=== PATIENT | male | born 1950 | race Caucasian/White ===

== ENCOUNTER 2019-09-13 12:42 | Inpatient (IN) ==
[2019-09-07 15:17] LABS: INR 2.3 (0.9-1.1)
[2019-09-07 15:32] LABS: Basophils # (Auto) 0.08 K/mcL (0.00-0.30); Basophils % (Auto) 0.8 % (0.0-2.0); Eosinophils # (Auto) 0.14 K/mcL (0.00-0.70); Eosinophils % (Auto) 1.3 % (0.0-7.0); Granulocytes % (Auto) 73.8 % (38.0-78.0); Hematocrit 49.2 % (40.1-51.0); Hemoglobin 15.9 g/dL (13.7-17.5); Lymphocytes # (Auto) 1.93 K/mcL (1.50-4.80); Lymphocytes % (Auto) 18.4 % (15.5-49.0); Mean Cell Volume 98.4 fL (80.0-100.0); Mean Corpuscular HGB Conc 32.3 g/dL (31.0-36.0); Mean Platelet Volume 11.7 fL (7.4-10.4); Monocytes % (Auto) 5.7 % (1.0-12.0); Platelet Count 314 K/mcL (140-440); Red Cell Distribution Width 12.9 % (11.5-14.5); WBC 10.5 K/mcL (4.50-11.00)
[2019-09-07 15:48] LABS: Estimated Average Glucose(eAG) 171 mg/dL; Hemoglobin A1C 7.6 % HGB (4.0-6.0)
[2019-09-07 16:31] LABS: Blood Urea Nitrogen 12 mg/dl (8-23); Carbon Dioxide 24 mmol/L (22-30); Chloride 101 mmol/L (96-108); Glomerular Filtration Rate 68; Glucose 167 mg/dL (70-105)
[2019-09-07 16:32] LABS: Appearance,Urine CLEAR; Bacteria,Urine 0 /hpf (0); Bilirubin,Urine NEG (NEG); Color,Urine YELLOW; Culture Indicated,Urine NO; Glucose,Urine (UA) NEGATIVE (NEG); Ketones,Urine NEG (NEG); Leukocyte Esterase,Urine NEG /uL (NEG); Mucus,Urine FEW /hpf (0); Nitrate,Urine NEG (NEG); Protein,Urine 30 mg/dL (NEG); Specific Gravity,Urine 1.017 (1.000-1.035); Urine Blood NEG mg/dL (<0.03); Urine RBC 0 /hpf (0-1); Urine Squamous Epithelial Cell 0 /hpf (0-4); Urine WBC 1 /hpf (0-4); Urobilinogen,Urine NEG (NEG)
[~2019-09-13 12:42] MED LIST: CELECOXIB 200 MG CAPSULE PO SCH; IPRATROPIUM/ALBUTEROL 3 ML AMPUL.NEB NEB PRN; PREGABALIN 75 MG CAPSULE PO SCH; SCOPOLAMINE 1 PATCH PATCH TOPICAL PRN; ceFAZolin 2 GM in DEXTROSE 5% IN WATER 50 ML IV SCH; oxyCODONE 10 MG TAB.ER.12H PO SCH
[2019-09-13 13:34] LABS: POC Blood Urea Nitrogen 12 mg/dl (8-23); POC CO2 27 mmol/L (22-30); POC Calcium, Ionized 1.28 mmol/L (1.16-1.32); POC Chloride 101 mmol/L (96-108); POC Creatinine 0.9 mg/dl (0.7-1.2); POC Glucose, Random 191 mg/dL (70-105); POC Potassium 4.3 mmol/L (3.3-5.1); POC Sodium 141 mmol/L (133-145)
[2019-09-13 13:59] LABS: POC INR 1.1 (0.9-1.2); POC Pro Time 13.5 sec (11.9-14.5)
[2019-09-13] MEDS ORDERED: ROPIVACAINE HCL/PF 30 ML VIAL IJ ONE (14:03)
[2019-09-13] MEDS ORDERED: ROCURONIUM 10 MG/ML ML IV ONE (14:03)
[2019-09-13] MEDS ORDERED: MIDAZOLAM 2 MG/2 ML VIAL IV ONE (14:03)
[2019-09-13] MEDS ORDERED: LIDOCAINE HCL/PF 100 MG/5 ML SYRINGE IV ONE (14:03)
[2019-09-13] MEDS ORDERED: PHENYLEPHRINE 10 MG/ML VIAL IV ONE (14:03)
[2019-09-13] MEDS ORDERED: SUCCINYLCHOLINE 20 MG/ML ML IV ONE (14:03)
[2019-09-13] MEDS ORDERED: fentaNYL 100 MCG/2 ML VIAL IV ONE (14:03)
[2019-09-13] MEDS ORDERED: PROPOFOL 200 MG/20 ML VIAL IV ONE (14:03)
[2019-09-13] MEDS ORDERED: ESMOLOL 100 MG/10 ML VIAL IV ONE (14:03)
[2019-09-13] MEDS ORDERED: TRANEXAMIC ACID 1,000 MG/10 ML VIAL IV ONE ×2 (14:03→15:44)
[2019-09-13] MEDS ORDERED: DEXAMETHASONE 10 MG/ML VIAL IV ONE (14:03)
[2019-09-13] MEDS ORDERED: GLYCOPYRROLATE 0.2 MG/ML VIAL IV ONE (14:03)
[2019-09-13] MEDS ORDERED: ONDANSETRON 4 MG/2 ML VIAL IV ONE (14:03)
[2019-09-13] MEDS ORDERED: KETAMINE 100 MG/ML ML IV ONE (14:03)
[2019-09-13] MEDS ORDERED: GENTAMICIN SULFATE 800 MG/20 ML VIAL IR ONE (14:57)
[2019-09-13] MEDS ORDERED: fentaNYL 100 MCG/2 ML VIAL IV PRN (15:39)
[2019-09-13] MEDS ORDERED: ACETAMINOPHEN 1,000 MG/100 ML BOTTLE IV ONE (15:39)
[2019-09-13] MEDS ORDERED: MEPERIDINE 25 MG/ML SYRINGE IV PRN (15:39)
[2019-09-13] MEDS ORDERED: METHOCARBAMOL 1,000 MG/10 ML VIAL IV PRN (15:39)
[2019-09-13] MEDS ORDERED: HYDROmorphone 0.5 MG/0.5 ML SYRINGE IV PRN (15:39)
[2019-09-13] MEDS ORDERED: IPRATROPIUM/ALBUTEROL 3 ML AMPUL.NEB NEB PRN (15:39)
[2019-09-13] MEDS ORDERED: ONDANSETRON 4 MG/2 ML VIAL IV PRN ×2 (15:39→15:44)
--- NOTE | 2019-09-13 15:40 | Brief Operative Note ---
Date of procedure: 09/13/19 Pre-op diagnosis: right shoulder rtc tear arthropathy Post-op diagnosis: same Procedure: right reverse total shoulder arthroplasty, biceps tenodesis Grafts/Implants: Yes Anesthesia: GETA Complications: none Complications Description: 09/13/19 15:40 stable os acromiale Surgeon: Wan Jeffers Wildlife [employer] Professor: Jeffry Avelar Estimated blood loss (cc): 150 Specimens Removed/Pathology: none sent Condition: stable Disposition: PACU
--- NOTE | 2019-09-13 15:42 | Discharge Summary ---
Ortho Discharge - TSA - Patient Instructions Diet: Regular Diet Activity: non weight bearing Total Shoulder Protocol: Leave immobilizer in place except for bathing and ROM. Abduction pillow. Continue to wear sling until seen by physician. Codman Pendulum : These exercises use momentum produced by your body to move your shoulder joint. Bend your knees and shift your weight to your front leg, then back, allowing your arm to swing in the same directions. Using the same technique, alternately shift your weight between your right and left legs, allowing your arm to swing from side to side. These exercises are also performed in counterclockwise and clockwise circular motions. Typically these exercises are performed several times per day, for a set number repetitions or minutes, such as 20 times in a row or 5 minutes at a time. Dressing Care: May shower in 2 days - Follow Up Plan Follow Up Appointments: Wan Jeffers MD [Physician] - 09/28/19 10:40 am Disposition: Home, Self-Care Prognosis: Good Rehab Potential: Good I certify that the patient requires SNF services: No Overall status at discharge: patient is progressing back to baseline
[2019-09-13] MEDS ORDERED: traZODone HCL 50 MG TABLET PO PRN (15:43)
[2019-09-13] MEDS ORDERED: METHOCARBAMOL 750 MG TABLET PO PRN (15:44)
[2019-09-13] MEDS ORDERED: DEXTROSE 50% 50 ML VIAL IV PRN (15:44)
[2019-09-13] MEDS ORDERED: morphine 4 MG/ML VIAL IV PRN (15:44)
[2019-09-13] MEDS ORDERED: DEXTROSE 31 GM ORAL.SUSP PO PRN (15:44)
[2019-09-13] MEDS ORDERED: BISACODYL 10 MG SUPP.RECT PR PRN (15:44)
[2019-09-13] MEDS ORDERED: ONDANSETRON 4 MG ODT TABLET SL PRN (15:44)
[2019-09-13] MEDS ORDERED: BENZOCAINE/MENTHOL 1 LOZENGE PO PRN (15:44)
[2019-09-13] MEDS ORDERED: HYDROcodone/APAP 10/325MG TABLET PO PRN (15:44)
[2019-09-13] MEDS ORDERED: POLYETHYLENE GLYCOL 3350 17 GM PACKET PO PRN (15:44)
[2019-09-13] MEDS ORDERED: FLEETS ADULT ENEMA PR PRN (15:44)
[2019-09-13] MEDS ORDERED: KETOROLAC 15 MG/ML VIAL IV PRN (15:44)
[2019-09-13] MEDS ORDERED: MAGNESIUM HYDROXIDE 30 ML ORAL.SUSP PO PRN (15:44)
[2019-09-13] MEDS ORDERED: LACTATED RINGERS 1,000 ML IV SCH (15:45)
[2019-09-13] MEDS ORDERED: ALBUTEROL SULFATE 200 PUFF INHALER INH PRN (15:47)
--- NOTE | 2019-09-13 16:25 | Operative Note ---
DATE OF OPERATION: 09/13/2019 PREOPERATIVE DIAGNOSES: 1. Right shoulder osteoarthritis. 2. Right shoulder nonoperable rotator cuff tear. 3. Right shoulder os acromiale. POSTOPERATIVE DIAGNOSES: 1. Right shoulder osteoarthritis. 2. Right shoulder nonoperable rotator cuff tear. 3. Right shoulder os acromiale. PROCEDURE: 1. Right reverse total shoulder arthroplasty. 2. Right shoulder proximal biceps tenodesis. SURGEON: Simona Jeffers M.D. APPRENTICE PAINTER HAND SURGEON: Jeffry Avelar PA-C. The PA's assistance was required for the safe and efficient completion of the entire case. This provider's expertise and technical skill were required throughout the case. The PA assisted with preoperative coordination, intraoperative retraction, wound closure, dressing and splint application, as well as postoperative documentation and care coordination. ANESTHESIA: General. ESTIMATED BLOOD LOSS: 150 mL. COMPLICATIONS: None noted. SPECIMENS REMOVED: None. DRAINS: None. IMPLANTS: DePuy Delta XTEND cementless metaglene, PERALTA-coated cementless; DePuy Delta XTEND locking metaglene three 4.5 x 30 times 1, 4.5 x 24 times 2; nonlocking metaglene screw 4.5 x 18 times 1; DePuy Delta XTEND glenosphere standard 38 mm; DePuy Delta XTEND modular humeral stem size 14, PERALTA-coated cementless; DePuy Delta XTEND modular eccentric epiphysis size 2, right, PERALTA-coated cementless; DePuy Delta XTEND humeral polyethylene cup standard 38, +6. INDICATIONS: The patient has had a longstanding history of worsening pain in the shoulder that has failed conservative treatment. Radiographs have confirmed advanced degenerative joint disease and a failed rotator cuff. After a long discussion about treatment options, the patient elected to proceed with a reverse total shoulder arthroplasty. The risks and benefits were discussed with the patient in detail including, but not limited to, the risks of anesthesia, problems with the heart or lungs related to anesthesia, infection, compromise or injury to the nerves and blood vessels, deep venous thrombosis, pulmonary embolism, pneumonia, continued pain after surgery, worsening pain or symptoms after surgery, swelling, loss of motion, instability, fracture, arm length discrepancy, and need for repeat surgery. DESCRIPTION OF PROCEDURE: The patient was seen in the preanesthesia waiting room where all questions were answered and the correct side and site were identified and marked. The patient was transferred to the operating room and administered the anesthetic and given preoperative antibiotics. A timeout was then called. The patient was placed in the modified beach chair position with all prominences well padded. The extremity was prepped and draped from the fingers up to the neck. A standard deltopectoral skin incision was created. Dissection was carried down to the deltopectoral groove and the cephalic vein was isolated medially and retracted laterally with the deltoid. Retractors were placed and the coracobrachialis was split up to the coracoacromial ligament allowing retraction of the conjoined tendon. We split the subscapularis 1 cm medial to the bicipital groove and extended the split into the rotator interval. This was tagged for later repair. The supraspinatus and infraspinatus had been previously torn and retracted. The biceps was cut and a soft tissue tenodesis was performed into the anterior shoulder with #2 FiberWire. A capsular release was performed in a posterior subperiosteal direction along the humerus. I did inspect his os acromiale. It was visualized on the superior and inferior surface. It was probed and moved. There was no instability in the os acromiale, so it was left intact. The humeral head was then dislocated. We established intramedullary access and hand reamed up to get good cortical chatter with the DePuy Delta XTEND reverse total shoulder instrumentation. We then used the intramedullary guide and set to about 5 degrees of retroversion. The proximal humerus cut was performed and osteophytes were removed. A metal protector plate was then placed. Attention was then turned to the glenoid. Retractors were placed for optimal visualization and the labrum was excised in its entirety. A centralizing Steinmann pin was placed just into the posterior inferior quadrant in a standard fashion. We reamed over the pin to remove all the cartilage and get to a good base for the prosthesis. The drill was then placed over for the central peg. A cementless Metaglene was then impacted into place. We then drilled, measured, and placed the four screws starting inferior, then superior, then anterior, and finally posterior. The superior locking screw was lined up at the base of the coracoid process. We then impacted the head onto the Metaglene and tightened down in a standard fashion. Attention was then turned back to the humerus. Proximal reaming was performed off the intramedullary guide into the humeral head, using the eccentric guide to allow best coverage. We again set version and broached up to a stable implant. Trials were placed and good tension, motion, and stability were obtained at this point. Trials were removed and the final press fit femoral prosthesis was impacted into place with measured version. The final polyethylene was placed and the shoulder was reduced and again checked for motion, tension, and stability. We irrigated with 3 liters of antibiotic saline and closed the subscapularis with # 2 FiberWire. We irrigated again and closed the deltopectoral interval with several # 0 Vicryl figure of eight sutures. The subcutaneous layer was closed with 2-0 Vicryl and the skin was closed with Dermabond in a standard fashion. A sterile pressure dressing was applied and the patient was placed into an abduction sling. All needle and sponge counts were correct. The patient was transferred to the recovery room in stable condition. LIOR:[email or web address] Job ID: [id number] Doc ID: [id number] Simona Jeffers MD
--- NOTE | 2019-09-13 16:50 | XRay Report ---
INDICATION: Post-OP Total Shoulder TECHNIQUE: AP and axillary views of the right shoulder COMPARISON: Preoperative evaluation dated 03/17/2019 FINDINGS: Status post right reverse shoulder arthroplasty. Alignment is anatomic IMPRESSION: Postoperative right shoulder as above Interpreted and Authenticated by: Wan Evans 09/13/19
[2019-09-13] MEDS ORDERED: metFORMIN 500 MG TAB.XL.24H PO SCH (17:30)
[2019-09-13] MEDS: INSULIN LISPRO 1 UNIT/0.01 ML UNIT SQ SCH ×2 (17:59→21:23)
[2019-09-13] MEDS: LACTATED RINGERS 1,000 ML IV SCH ×3 (17:59→23:09)
[2019-09-13] MEDS ORDERED: ATORVASTATIN 20 MG TABLET PO SCH (21:00)
[2019-09-13] MEDS ORDERED: TAMSULOSIN 0.4 MG CAPSULE PO SCH (21:00)
[2019-09-13] MEDS ORDERED: LATANOPROST OPHTH DROPS 2.5ML BOTTLE OU SCH (21:00)
[2019-09-13] MEDS ORDERED: SENNOSIDES 1 TABLET PO SCH (21:00)
[2019-09-13] MEDS: LISINOPRIL 10 MG TABLET PO SCH (21:24)
[2019-09-13] MEDS: METOPROLOL SUCCINATE 50 MG TAB.XL.24H PO SCH (21:25)
[2019-09-13] MEDS: DOCUSATE SODIUM 100 MG CAPSULE PO SCH (21:25)
[2019-09-13] MEDS: 0.9 % SODIUM CHLORIDE 10 ML SYRINGE IV SCH (22:27)
[2019-09-13] MEDS: ceFAZolin 1 GM VIAL IV SCH (22:36)
[2019-09-14] MEDS: ceFAZolin 1 GM VIAL IV SCH (04:54)
[2019-09-14] MEDS: 0.9 % SODIUM CHLORIDE 10 ML SYRINGE IV SCH (04:55)
--- NOTE | 2019-09-14 07:11 | Orthopedic Progress Note ---
Subjective Patient information: Note initiated : 09/14/19 at 7:09 am Service Date, if different from initiated Date: [] Patient: Donavon Pascual 69 y/o M admitted on 09/13/19 for Right Reverse Total Shoulder Arthroplasty, . Chief Complaint: [] Interval history: doing well. no complaints Objective Vital signs: Vital Signs Temp Pulse Pulse Resp BP Pulse Ox 09/14/19 02:56 97.7 F 76 12 145/74 91 09/13/19 23:01 96.8 F L 82 12 131/79 90 09/13/19 20:23 97.1 F 74 12 128/68 91 09/13/19 20:00 74 12 91 09/13/19 19:50 95 H 16 92 09/13/19 19:22 70 109/67 89 L 09/13/19 18:52 66 110/68 87 L 09/13/19 18:22 68 115/73 96 09/13/19 18:07 68 121/74 93 09/13/19 17:52 68 121/74 93 09/13/19 17:37 67 111/73 94 09/13/19 17:32 87 14 115/75 93 09/13/19 17:30 87 14 94 09/13/19 17:22 97.6 F 66 113/73 80 L 09/13/19 16:52 78 18 109/60 93 09/13/19 16:37 97.3 F 67 13 99/63 92 09/13/19 16:22 97.9 F 76 16 93/59 98 09/13/19 16:17 67 19 90/53 93 09/13/19 16:12 63 12 82/55 93 09/13/19 16:07 65 10 L 83/54 96 09/13/19 12:42 98.3 F 63 18 127/79 95 Intake and Output 09/13/19 09/14/19 09/14/19 21:59 05:59 13:59 Intake Total 048 462 6414 Balance 422 016 8183 Intake: IV 388 1000 Lactated Ringers 1,000 ml @ 149 963 0124 mls/hr IV .Q8H BLANCA Rx#: [id number] Oral 250 Other: # Voids 1 Weight 225 lb 8 oz Intake & Output: Intake & Output 09/13/19 09/14/19 09/14/19 21:59 05:59 13:59 Intake Total 961 526 0178 Balance 962 560 4683 Weight 225 lb 8 oz Intake: IV 388 1000 Lactated Ringers 1,000 ml @ 443 477 3093 mls/hr IV .Q8H BLANCA Rx#: [id number] Oral 250 Other: # Voids 1 Incision: Yes healing Incision clean and dry: Yes Dressing: Yes clean, Yes dry, Yes intact Weight bearing status: non Neurological exam IM: Yes alert, Yes normal gait, Yes oriented X3 Extremities exam IM: No calf tenderness, Yes Foot pink and warm, Yes neurovascular intact - Labs CBC & BMP: 09/07/19 11:19 09/07/19 11:54 Labs: Orthopedic Labs 09/13/19 09/07/19 13:55 11:54 POC PT 13.5 PT 26.0 H POC INR 1.1 INR 2.3 H 09/14/19 09/07/19 05:52 11:19 Hgb Pending 15.9 Hct Pending 49.2 Assessment and Plan (1) Osteoarthritis, shoulder A: pod 1 s/p reverse right tsa P: nwb sling pain control dc planning Status: Acute
[2019-09-14] MEDS: LACTATED RINGERS 1,000 ML IV SCH (07:40)
[2019-09-14] MEDS: INSULIN LISPRO 1 UNIT/0.01 ML UNIT SQ SCH ×2 (08:13→12:41)
[2019-09-14] MEDS: LISINOPRIL 10 MG TABLET PO SCH (08:14)
[2019-09-14] MEDS: METOPROLOL SUCCINATE 50 MG TAB.XL.24H PO SCH (08:14)
[2019-09-14] MEDS: DOCUSATE SODIUM 100 MG CAPSULE PO SCH (08:14)
[2019-09-14] MEDS ORDERED: WARFARIN 5 MG TABLET PO SCH (09:00)
[2019-09-14] MEDS ORDERED: amLODIPine 5 MG TABLET PO SCH (09:00)
[2019-09-14 10:02] LABS: Hematocrit 42.7 % (40.1-51.0)
== END 2019-09-14 11:45 | disposition home or self-care (01) | DRG 483 ==
LOC: MEDSUR 12:42
PROVIDERS: ADMIT Orthopaedic Surgery Sports Medicine; ATTEND Orthopaedic Surgery Sports Medicine